=== PATIENT | male | born 1940 | race Caucasian/White ===

== ENCOUNTER 2018-08-15 11:20 | Inpatient (IN) ==
[2018-08-15] MEDS ORDERED: MECLIZINE HCL 25 MG TAB PO STA (11:34)
--- NOTE | 2018-08-15 12:00 | CT Scan Report ---
CT head/brain wo con CLINICAL HISTORY: vertigo COMPARISON STUDY: No previous studies for comparison. TECHNIQUE: Axial CT of the brain is performed from the vertex to the skull base. IV contrast was not administered for this examination. A dose lowering technique was utilized adhering to the principles of ALARA. CT DOSE: 537.48 mGy.cm FINDINGS: No intra or extra-axial mass lesions are visualized. There is no CT evidence of acute cortical infarc tion. There is no evidence of midline shift. There is no acute hemorrhage. No calvarial fractures ar e visualized. There are patchy white matter hypodensities likely on a small vessel basis. There is no evidence of pathologic ventricular dilatation. 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 IMPRESSION: No acute intracranial findings Electronically signed by: Geo Al M.D. 08/15/2018 11:58 AM
[2018-08-15 12:04] LABS: Partial Thromboplastin Ratio 1.1; Partial Thromboplastin Time 29.6 Seconds (21.0-31.0); Prothrombin Time 10.4 Seconds (9.0-12.0)
--- NOTE | 2018-08-15 12:08 | XRay Report ---
XR chest 1V portable CLINICAL HISTORY: weakness COMPARISON STUDY: No previous studies for comparison. FINDINGS: The cardiac and mediastinal contours are normal. There is no evidence of focal pulmonary co nsolidation. There is no evidence of failure. No pleural effusions are visualized.[ There is slight p rogression of chronic basilar interstitial thickening. IMPRESSION: No active disease in the chest. Electronically signed by: Geo Al M.D. 08/15/2018 12:07 PM
[2018-08-15 12:11] LABS: Albumin Level 3.4 gm/dl (3.4-5.0); BUN Creatinine Ratio 17.3 (10-20); Calcium 9.1 mg/dl (8.5-10.1); Creatinine Clr Calc Pharmacy 32.2 ml/min; Est GFR (African American) 37.5; Est GFR (Non-African American) 32.4; Magnesium 2.5 mg/dl (1.8-2.4); Potassium 3.9 mmol/L (3.5-5.1)
[2018-08-15 12:21] LABS: Hematocrit (blood only) 44.3 % (42-52); Hemoglobin 15.7 g/dL (14.0-18.0); Mean Corpuscular Hgb Conc 35.4 g/dL (32-36); Mean Corpuscular Volume 97.4 fL (80-100); Mean Platelet Volume 13.1 fL (7.4-10.4); Platelet Count 24 K/uL (130-400); RDW Coefficient of Variation 13.6 % (11.5-14.5); RDW Standard Deviation 48.7 fL (36.4-46.3); Red Blood Count 4.55 M/uL (4.7-6.1); White Blood Count 3.61 K/uL (4.8-10.8)
[2018-08-15 12:22] LABS: Albumin Globulin Ratio 0.7 (0.9-2); Basophils # (auto) 0.11 K/uL (0-0.2); Bilirubin,Total 1.9 mg/dl (0.2-1); Eosinophils # (auto) 0.01 K/uL (0-0.5); Eosinophils % (auto) 0.3 %; Globulin 4.7 gm/dl (2.5-4.0); Immature Granulocytes # (auto) 0.01 K/uL (0.00-0.02); Immature Granulocytes % (auto) 0.3 %; Lymphocytes # (auto) 0.69 K/uL (1.2-3.4); Lymphocytes % (auto) 19.1 %; Monocytes # (auto) 0.69 K/uL (0.11-0.59); Monocytes % (auto) 19.1 %; Neutrophils % (auto) 58.2 %; Platelet Estimate SIGNIFIC DECREASED (Normal); Total Protein 8.1 gm/dl (6.4-8.2); Troponin I 0.028 ng/ml (0-0.045)
[2018-08-15 13:03] LABS: Appearance Urine Cloudy (Clear); Bacteria Urine Automated Negative (Negative); Blood Urine 2+ (Negative); Color Urine Dark Yellow; Epithelial Cell Urine Auto >30 /lpf (0-5); Glucose Urine UA Negative (Negative); Ketones Urine Trace (Negative); Leukocyte Esterase Urine Negative (Negative); Nitrite Urine Negative (Negative); Protein Urine 2+ (Negative); Specific Gravity Urine 1.025 (1.000-1.030); Urobilinogen Urine Negative (Negative); pH Urine 5.5 (4.5-7.5)
[2018-08-15 13:15] LABS: Bilirubin Urine Negative (Negative); Ictotest Urine Negative (Negative)
[2018-08-15] MEDS ORDERED: DOXYCYCLINE HYCLATE 100 MG CAP PO STA (13:23)
[2018-08-15] MEDS ORDERED: cefTRIAXone SODIUM 2,000 MG in DEXTROSE 5% 50 ML IV STA (13:23)
[2018-08-15 14:32] LABS: Lyme Ab IgG w/WB Rflx Negative (Negative); Lyme Ab IgM w/WB Rflx Negative (Negative)
[2018-08-15] MEDS ORDERED: SODIUM CHLORIDE 0.9% 500 ML IV ONE (14:41)
--- NOTE | 2018-08-15 14:51 | History & Physical Report ---
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 -Noted to have WBC count of 3.61, RBC count 4.55 and platelets of 24. Hemoglobin stable at 15.7 -Peripheral smear highly suspicious for anaplasmosis -Given dose of Rocephin, doxycycline and ED -Continue doxycycline 100 mg twice daily for 10-14 days -lyme, anaplasmosis serology pending -PT/OT evaluation, conditioning -Gentle IV fluids (2) Thrombocytopenia: Platelet count significantly reduced at 24, was 224 last month -No evidence of active bleeding, closely monitor -Hold baby aspirin -SCDs (3) CKD (chronic kidney disease), stage III: Kidney function slightly worse than baseline with Cr of 1.9 (baseline 1.7) -In setting of poor PO intake, infection -Gentle IV fluids, hold hctz for now (4) HTN (hypertension): Normotensive -Holding triamterene-hctz (5) HLD (hyperlipidemia): Continue statin (6) Vertigo: In setting of infection, dehydration -Expect improvement with fluids and doxy -Meclizine PRN (7) Asthma: Controlled, no home inhalers DVT Ppx: SCDs in setting of thrombocytopenia Code status: FULL per discussion with patient PCP: Seb Dispo:Observation med tele. Plan to return home once medically stable. Patient seen in collaboration with Dr. Anderson. Please see addendum. History of Present Illness Chief Complaint: Lightheadedness, generalized weakness Primary Care Provider: George Grigsby MD This is a 77-year-old male with a PMH of HTN, HLD, CKD III, asthma, h/o DVT and other medical problems listed below who presents with lightheadedness and weakness x 1 week. Normally ambulates independently but felt progressively weaker and had to use his cane. Also noted lightheadedness and dizziness that has developed since last week. Patient had been working in his yard last week with [employer] and lives near [facility]. Has not felt well enough to work as yard in the last few days. Decreased p.o. intake as well. Found to be hemodynamically stable in the ED. Noted to have WBC count of 3.61, RBC count 4.55 and platelets of 24. Hemoglobin stable at 15.7. These are all decreased from baseline, specifically platelet count which was 224 last month. Denies any active bleeding or new bruises. Peripheral smear highly suspicious for anaplasmosis. Started on doxycycline and ceftriaxone in the ED. No fever, chills, congestion, sore throat, chest pain, palpitations, shortness of breath, nausea, vomiting, abdominal pain, dysuria, hematuria, diarrhea, constipation, melena or hematochezia. Allergies Allergy/AdvReac Type Severity Reaction Status Date / Time No Known Allergies Allergy Unknown Verified 08/15/18 12:46 Home Medications Home Medications Medication Instructions Recorded Confirmed Type aspirin 81 mg PO QAM 08/15/18 08/15/18 History atorvastatin 20 mg PO DAILY 08/15/18 08/15/18 History multivitamin 1 tab PO DAILY 08/15/18 08/15/18 History triamterene-hydrochlorothiazid 1 tab PO DAILY 08/15/18 08/15/18 History Past Med/Surg History Medical History Asthma (Chronic) CKD (chronic kidney disease), stage III (Chronic) HLD (hyperlipidemia) (Chronic) HTN (hypertension) (Chronic) H/O deep venous thrombosis (Resolved) Surgical History H/O lumbosacral spine surgery (Chronic) Social History Current Living Situation: Spouse Feels Safe at Home: Yes Smoking Status: Never smoker Hx Alcohol Use: Yes Alcohol type: wine Review of Systems Review of Systems: At least ten systems reviewed and negative except as noted in the HPI. Physical Exam Physical Exam: General Appearance: WD/WN, no apparent distress, resting comfortably Head: normocephalic, atraumatic Eyes: normal inspection, PERRL, EOMI ENT: hearing grossly normal, pharynx normal (moist mucous membranes) Neck: supple, no JVD, no adenopathy Respiratory/Chest: lungs clear to auscultation. No wheezes, rales or rhonci. No respiratory distress or accessory muscle use Cardiovascular: regular rate, rhythm, no murmur, normal peripheral pulses Abdomen/GI: normal bowel sounds, soft, non-tender to palpation Extremities/Musculoskelatal: normal inspection, no calf tenderness, normal capillary refill, no pedal edema Neurologic/Psych: alert, normal mood/affect, oriented x 3. CN II-XII grossly intact, AROM and 5/5 EDIN in all extremities Skin: normal color, warm/dry, some erythematous plaques on bilateral arms, has been present x 1 week Results & Data Vital Signs (Past 12 Hours) Vital Signs Temp Pulse Resp BP Pulse Ox 08/15/18 14:30 65 18 08/15/18 14:00 83 19 08/15/18 13:30 64 19 08/15/18 12:30 62 17 98/59 L 08/15/18 12:01 23 116/63 08/15/18 11:25 36.9 C 76 16 125/81 98 Laboratory Results Short CBC 08/15/18 Range/Units 11:40 WBC 3.61 L (4.8-10.8) K/uL Hgb 15.7 (14.0-18.0) g/dL Hct 44.3 (42-52) % Plt Count 24 L* (130-400) K/uL BMP 08/15/18 11:40 Sodium 134 L Potassium 3.9 Chloride 97 L Carbon Dioxide 30 BUN 33 H Creatinine 1.92 H Glucose 106 H Calcium 9.1 Cardiac Enzymes 08/15/18 Range/Units 11:40 Troponin I 0.028 (0-0.045) ng/ml Liver Function 08/15/18 Range/Units 11:40 Total Bilirubin 1.9 H (0.2-1) mg/dl AST 120 H (15-37) U/L ALT 75 (12-78) U/L Alkaline Phosphatase 215 H (45-117) U/L Albumin 3.4 (3.4-5.0) gm/dl Urine 08/15/18 Range/Units 12:40 Urine Color Dark Yellow Urine Appearance Cloudy H (Clear) Urine pH 5.5 (4.5-7.5) Ur Specific [place] 1.025 (1.000-1.030) Urine Protein 2+ H (Negative) Urine Glucose (UA) Negative (Negative) Supervising Physician Co-Signing Physician Notes Care coordinated with Maryann Mejia PA-C. Agree with above note. Patient seen and examined. Please refer to her notes for full details. Vital signs reviewed. Physical exam: General exam: Alert and oriented. Not in acute distress. CVS: S1 and S2 heard, regular rate and rhythm, no murmurs. RS: Clear to auscultation, no wheezing or crackles. ABD: Soft, bowel sounds present, nontender, no distention. SOCIAL SERVICE MANAGER: Nonfocal. EXT: No edema, no erythema. Labs: Reviewed. Assessment and plan: 77M who lives with his says he is not feeling well for about 3 weeks but more so since about a week. About a week ago his neighbours cut trees and he carried some of them to [email or web address]. Last five days loss of appetite. Denies fevers. No nausea or abdominal pain. Currently hemodynamically stable. Anaplasmosis leukopenia and thrombocytopenia peripheral smear suspicious for anaplasmosis follow lyme screen started on doxycyline if lyme scree negative can treat anaplasmosis for 10days HTN holding home diuretics will monitor Other diagnosis and plan of care as per Maryann Mejia PA-C. Homero molina MD.
--- NOTE | 2018-08-15 15:08 | Emergency Department Note ---
Entered by Brandy Silva acting as a scribe for Arun Winters DO History of Present Illness General Chief complaint: Neuro Symptoms/Deficit Stated complaint: OFF BALANCE Time Seen by Provider: 08/15/18 11:31 Source: patient History of Present Illness Provider complaint: dizziness Onset (ago): week(s) 2 Location: head Pain Consistency: + constant Maximum Pain Intensity: 0 Quality: + other (dizziness) Exacerbated By: + movement (getting up to walk) Associated symptoms: + denies other symptoms (denies ringing in ears); no fever/chills, no headaches and no weakness (in legs) The patient is a 77 year old male who presents to the Emergency Department with complaints of constant dizziness over the last 2 weeks. He denies having headaches, fevers, or ringing in his ears. He states that nothing alleviates his symptoms but reports that getting up to walk exacerbates his symptoms. He denies having weakness in his legs. Per family, the patient's speech seems normal currently. The patient denies a history of vertigo. He states that he takes 81 mg of aspirin daily. He reports that he does not smoke. The patient states that he did not see his PCP as he was unable to get an appointment. Home Medications Home Medications Medication Instructions Recorded Confirmed Type aspirin 81 mg PO QAM 08/15/18 08/15/18 History atorvastatin 20 mg PO DAILY 08/15/18 08/15/18 History multivitamin 1 tab PO DAILY 08/15/18 08/15/18 History triamterene-hydrochlorothiazid 1 tab PO DAILY 08/15/18 08/15/18 History Allergies Allergy/AdvReac Type Severity Reaction Status Date / Time No Known Allergies Allergy Unknown Verified 08/15/18 12:46 Past Med/Surg History Medical History Asthma (Chronic) CKD (chronic kidney disease), stage III (Chronic) HLD (hyperlipidemia) (Chronic) HTN (hypertension) (Chronic) H/O deep venous thrombosis (Resolved) Surgical History H/O lumbosacral spine surgery (Chronic) Social History Current Living Situation: Spouse Feels Safe at Home: Yes Smoking Status: Never smoker Hx Alcohol Use: Yes Alcohol type: wine Review of Systems See HPI for pertinent positives & negatives. and A total of 10 systems reviewed and were otherwise negative Physical Exam Vital Signs Vital Signs - 24 hr 08/15/18 11:25 08/15/18 12:01 08/15/18 12:30 Temperature 36.9 C Temperature Source Oral Sepsis Recent Fever Within 48 Hours No Sepsis New/Unexplained Change in Mental Status No Sepsis Action Taken by Nursing No Action Required Pulse Rate 76 62 Pulse Rate [Apical] Respiratory Rate 16 23 17 Blood Pressure 125/81 116/63 98/59 L Blood Pressure [Right Arm] Blood Pressure Mean 95 80 72 Blood Pressure Mean [Right Arm] Pulse Oximetry 98 Oxygen Delivery Method Room Air 08/15/18 13:30 08/15/18 14:00 08/15/18 14:30 Temperature Temperature Source Sepsis Recent Fever Within 48 Hours Sepsis New/Unexplained Change in Mental Status Sepsis Action Taken by Nursing Pulse Rate 64 83 65 Pulse Rate [Apical] 64 Respiratory Rate 19 17 18 Blood Pressure Blood Pressure [Right Arm] 110/51 L Blood Pressure Mean Blood Pressure Mean [Right Arm] 70 Pulse Oximetry 95 Oxygen Delivery Method Room Air GENERAL: Patient is awake, alert, and in no acute distress.Patient is resting comfortably and showing no signs of anxiety EYES: The conjunctivae are clear. The pupils are round and reactive. EARS, NOSE, MOUTH AND THROAT: The nose is without any evidence of any deformity. Mucous membranes are moist.Tongue is midline. TMS clear bilaterally. NECK: The neck is nontender and supple. RESPIRATORY: Normal respiratory effort is noted. There is no evidence of wheezing rhonchi or rales to auscultation. CARDIOVASCULAR: Regular rate and rhythm noted. There no murmurs rubs or gallops normal S1 normal S2 GASTROINTESTINAL: The abdomen is soft. Bowel sounds are present in all quadrants. Abdomen is nontender. MUSCULOSKELETAL/EXTREMITIES: There is no evidence of gross deformity. Full range of motion is noted in the hips and shoulders. No calf tenderness. SKIN: There is no obvious evidence of any rash. There are no petechiae, pallor or cyanosis noted. Trace pedal edema bilaterally. NEUROLOGIC: Patient is awake alert and oriented x3.Strength is symmetric. Patellar reflexes are 2+ bilaterally. No facial droop or nystagmus. Course 1133: The patient was evaluated in room C12B. A history and physical were performed. 1328: I updated the patient who verbalized agreement and understanding of the treatment plan. 1334: I discussed the patient's case with Maryann Schofield, admitting to Dr. Anderson, who will evaluate the patient for further management. Consultations Consultation #1: Maryann Schofield Time: 13:34 Administered Medications Sodium Chloride (Nss) 500 mls @ 999 mls/hr IV .Q31M ONE Stop: 08/15/18 15:11 Last Admin: 08/15/18 14:59 Dose: 999 mls/hr Documented by: [id number] Discontinued Medications Doxycycline Hyclate (Vibramycin) 200 mg PO NOW STA Stop: 08/15/18 13:24 Last Admin: 08/15/18 13:52 Dose: 200 mg Documented by: [id number] Ceftriaxone Sodium 2,000 mg/ (Dextrose) 70 mls @ 100 mls/hr IV NOW STA Stop: 08/15/18 14:04 Last Infusion: 08/15/18 14:37 Dose: 0 mls/hr Documented by: [id number] Admin: 08/15/18 14:00 Dose: 100 mls/hr Documented by: [id number] Meclizine HCl (Antivert) 25 mg PO NOW STA Stop: 08/15/18 11:35 Last Admin: 08/15/18 12:11 Dose: 25 mg Documented by: [id number] Medical Decision Making Differential Diagnosis Differential includes acute coronary syndrome, myocardial infarction, CVA, TIA, anemia, infection, pneumonia, UTI, pyelonephritis, poor nutrition, dehydration, electrolyte disturbance,hypoglycemia. Medical Records Attestation: I reviewed the patient's medical records. Home Medications Current Medication List: was personally reviewed by me Laboratory Data Attestation: I reviewed the patient's lab results. Result diagrams: 08/15/18 11:40 08/15/18 11:40 Lab Results 08/15/18 08/15/18 08/15/18 Range/Units 11:40 11:40 11:40 WBC 3.61 L (4.8-10.8) K/uL RBC 4.55 L (4.7-6.1) M/uL Hgb 15.7 (14.0-18.0) g/dL Hct 44.3 (42-52) % MCV 97.4 (80-100) fL MCH 34.5 H (25-34) pg MCHC 35.4 (32-36) g/dL RDW Std Deviation 48.7 H (36.4-46.3) fL RDW Coeff of Brian 13.6 (11.5-14.5) % Plt Count 24 L* (130-400) K/uL MPV 13.1 H (7.4-10.4) fL Immature Gran % (Auto) 0.3 % Neut % (Auto) 58.2 % Lymph % (Auto) 19.1 % [place] % (Auto) 19.1 % Eos % (Auto) 0.3 % Baso % (Auto) 3.0 % Immature Gran # (Auto) 0.01 (0.00-0.02) K/uL Neut # (Auto) 2.10 (1.4-6.5) K/uL Lymph # (Auto) 0.69 L (1.2-3.4) K/uL [place] # (Auto) 0.69 H (0.11-0.59) K/uL Eos # (Auto) 0.01 (0-0.5) K/uL Baso # (Auto) 0.11 (0-0.2) K/uL Blood Smear Review Platelet Estimate SIGNIFIC DECREASED (Normal) PT 10.4 (9.0-12.0) Seconds INR 1.0 (0.9-1.1) APTT 29.6 (21.0-31.0) Seconds PTT Ratio 1.1 Sodium 134 L (136-145) mmol/L Potassium 3.9 (3.5-5.1) mmol/L Chloride 97 L (98-107) mmol/L Carbon Dioxide 30 (21-32) mmol/L Anion Gap 7.0 (3-11) BUN 33 H (7-18) mg/dl Creatinine 1.92 H (0.6-1.4) mg/dl Est Cr Clr Drug Dosing 32.2 ml/min Est GFR ( Amer) 37.5 Est GFR (Non-Af Amer) 32.4 BUN/Creatinine Ratio 17.3 (10-20) Glucose 106 H (70-99) mg/dl Calcium 9.1 (8.5-10.1) mg/dl Magnesium 2.5 H (1.8-2.4) mg/dl Total Bilirubin 1.9 H (0.2-1) mg/dl AST 120 H (15-37) U/L ALT 75 (12-78) U/L Alkaline Phosphatase 215 H (45-117) U/L Troponin I 0.028 (0-0.045) ng/ml Total Protein 8.1 (6.4-8.2) gm/dl Albumin 3.4 (3.4-5.0) gm/dl Globulin 4.7 H (2.5-4.0) gm/dl Albumin/Globulin Ratio 0.7 L (0.9-2) TSH 3.050 (0.300-4.500) uIu/ml Urine Color Urine Appearance (Clear) Urine pH (4.5-7.5) Ur Specific [place] (1.000-1.030) Urine Protein (Negative) Urine Glucose (UA) (Negative) Urine Ketones (Negative) Urine Blood (Negative) Urine Nitrite (Negative) Urine Bilirubin (Negative) Urine Urobilinogen (Negative) Ur Leukocyte Esterase (Negative) Urine WBC (Auto) (0-5) /hpf Urine RBC (Auto) (0-4) /hpf U Hyaline Cast (Auto) (0-5) /lpf U Epithel Cells (Auto) (0-5) /lpf Urine Bacteria (Auto) (Negative) Granular Casts (0) /lpf Lyme Disease IgG Ab (Negative) Lyme Disease IgM Ab (Negative) 08/15/18 08/15/18 Range/Units 12:40 12:43 WBC (4.8-10.8) K/uL RBC (4.7-6.1) M/uL Hgb (14.0-18.0) g/dL Hct (42-52) % MCV (80-100) fL MCH (25-34) pg MCHC (32-36) g/dL RDW Std Deviation (36.4-46.3) fL RDW Coeff of Brian (11.5-14.5) % Plt Count (130-400) K/uL MPV (7.4-10.4) fL Immature Gran % (Auto) % Neut % (Auto) % Lymph % (Auto) % [place] % (Auto) % Eos % (Auto) % Baso % (Auto) % Immature Gran # (Auto) (0.00-0.02) K/uL Neut # (Auto) (1.4-6.5) K/uL Lymph # (Auto) (1.2-3.4) K/uL [place] # (Auto) (0.11-0.59) K/uL Eos # (Auto) (0-0.5) K/uL Baso # (Auto) (0-0.2) K/uL Blood Smear Review Platelet Estimate (Normal) PT (9.0-12.0) Seconds INR (0.9-1.1) APTT (21.0-31.0) Seconds PTT Ratio Sodium (136-145) mmol/L Potassium (3.5-5.1) mmol/L Chloride (98-107) mmol/L Carbon Dioxide (21-32) mmol/L Anion Gap (3-11) BUN (7-18) mg/dl Creatinine (0.6-1.4) mg/dl Est Cr Clr Drug Dosing ml/min Est GFR ( Amer) Est GFR (Non-Af Amer) BUN/Creatinine Ratio (10-20) Glucose (70-99) mg/dl Calcium (8.5-10.1) mg/dl Magnesium (1.8-2.4) mg/dl Total Bilirubin (0.2-1) mg/dl AST (15-37) U/L ALT (12-78) U/L Alkaline Phosphatase (45-117) U/L Troponin I (0-0.045) ng/ml Total Protein (6.4-8.2) gm/dl Albumin (3.4-5.0) gm/dl Globulin (2.5-4.0) gm/dl Albumin/Globulin Ratio (0.9-2) TSH (0.300-4.500) uIu/ml Urine Color Dark Yellow Urine Appearance Cloudy H (Clear) Urine pH 5.5 (4.5-7.5) Ur Specific [place] 1.025 (1.000-1.030) Urine Protein 2+ H (Negative) Urine Glucose (UA) Negative (Negative) Urine Ketones Trace H (Negative) Urine Blood 2+ H (Negative) Urine Nitrite Negative (Negative) Urine Bilirubin Negative (Negative) Urine Urobilinogen Negative (Negative) Ur Leukocyte Esterase Negative (Negative) Urine WBC (Auto) 1-5 (0-5) /hpf Urine RBC (Auto) 5-10 H (0-4) /hpf U Hyaline Cast (Auto) 1-5 (0-5) /lpf U Epithel Cells (Auto) >30 H (0-5) /lpf Urine Bacteria (Auto) Negative (Negative) Granular Casts 5-10 H (0) /lpf Lyme Disease IgG Ab Negative (Negative) Lyme Disease IgM Ab Negative (Negative) Imaging Data Radiologist's Impression: Radiology results as stated below per my review and the radiologist's interpretation: CT head/brain wo con CLINICAL HISTORY: vertigo COMPARISON STUDY: No previous studies for comparison. TECHNIQUE: Axial CT of the brain is performed from the vertex to the skull base. IV contrast was not administered for this examination. A dose lowering technique was utilized adhering to the principles of ALARA. CT DOSE: 537.48 mGy.cm FINDINGS: No intra or extra-axial mass lesions are visualized. There is no CT evidence of acute cortical infarction. There is no evidence of midline shift. There is no acute hemorrhage. No calvarial fractures are visualized. There are patchy white matter hypodensities likely on a small vessel basis. There is no evidence of pathologic ventricular dilatation. 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 IMPRESSION: No acute intracranial findings Electronically signed by: Geo Al M.D. 08/15/2018 11:58 AM XR chest 1V portable CLINICAL HISTORY: weakness COMPARISON STUDY: No previous studies for comparison. FINDINGS: The cardiac and mediastinal contours are normal. There is no evidence of focal pulmonary consolidation. There is no evidence of failure. No pleural effusions are visualized.[ There is slight progression of chronic basilar interstitial thickening. IMPRESSION: No active disease in the chest. Electronically signed by: Geo Al M.D. 08/15/2018 12:07 PM ECG Data Attestation: I personally reviewed and interpreted this ECG as follows: Indication: other (dizziness) Rate (beats per minute): 64 Rhythm: normal sinus Findings: + RBBB and + ST depression (inferior); no PVC Comparison ECG Date: from (09/01/11) Change: no significant change Blood Pressure Blood Pressure Findings: Normal blood pressure MDM Narrative The patient is a 77-year-old male who presented department for vertigo and generalized weakness. The patient describes an episode of vertigo but also generalized weakness with difficulty ambulating. The patient was found to have a low white blood cell count as well as thrombocytopenia. His differential appeared to be consistent with possible anaplasmosis. The patient was treated with IV antibiotics in the emergency department. He was also given oral doxycycline. I discussed the patient's laboratory and radiographic studies with him. Because of his findings I also discussed his case with the on-call [facility] hospitalist group. They have agreed to evaluate the patient in the emergency department for further management and disposition. Impression & Plan Vertigo, Thrombocytopenia, GILLIAN (acute kidney injury) Discharge Plan Visit Data Chief Complaint: Neuro Symptoms/Deficit Stated Complaint: OFF BALANCE ED Provider: Arun Winters Discharge Problem: Vertigo, Thrombocytopenia, GILLIAN (acute kidney injury) Patient Disposition: Being Evaluated by Hospitalist Forms Stand Alone Forms: My [facility] Prescriptions Prescriptions: No Action multivitamin Tablet 1 tab PO DAILY RF: 0 atorvastatin 20 mg tablet 20 mg PO DAILY RF: 0 aspirin 81 mg Tablet,Delayed Release (Dr/Ec) 81 mg PO QAM RF: 0 triamterene-hydrochlorothiazid 37.5-25 mg tablet 1 tab PO DAILY RF: 0 Referrals Referrals: George Grigsby MD [Primary Care Provider] - The scribe's documentation has been prepared under my direction and personally reviewed by me in its entirety. I confirm that the note above accurately reflects all work, treatment, procedures, and medical decision making performed by me.
[2018-08-15] MEDS ORDERED: POLYETHYLENE (MIRALAX) 17 GM PACK PO PRN (16:11)
[2018-08-15] MEDS ORDERED: ACETAMINOPHEN 325 MG TAB PO PRN (16:11)
[2018-08-15] MEDS ORDERED: MECLIZINE 12.5 MG TAB PO PRN (16:11)
[2018-08-15] MEDS ORDERED: SODIUM CHLORIDE 0.9% 1000ML 1,000 ML IV SCH (16:15)
[2018-08-15] MEDS: DOXYCYCLINE HYCLATE 100 MG CAP PO SCH (20:10)
[2018-08-16 09:29] LABS: Hematocrit (blood only) 41.3 % (42-52); Hemoglobin 14.7 g/dL (14.0-18.0); Mean Corpuscular Hgb Conc 35.6 g/dL (32-36); Mean Corpuscular Volume 97.6 fL (80-100); RDW Coefficient of Variation 13.7 % (11.5-14.5); RDW Standard Deviation 49.2 fL (36.4-46.3); Red Blood Count 4.23 M/uL (4.7-6.1)
[2018-08-16 09:57] LABS: BUN Creatinine Ratio 18.8 (10-20); Calcium 8.6 mg/dl (8.5-10.1); Creatinine Clr Calc Pharmacy 39.1 ml/min; Est GFR (African American) 47.5; Potassium 3.2 mmol/L (3.5-5.1)
[2018-08-16] MEDS: ATORVASTATIN 20 MG TAB PO SCH (09:58)
[2018-08-16] MEDS: MULTIVITAMIN TAB PO SCH (09:58)
[2018-08-16] MEDS: DOXYCYCLINE HYCLATE 100 MG CAP PO SCH ×2 (09:58→20:30)
[2018-08-16 10:14] LABS: ALC (manual) 2.98 K/uL (1.2-3.4); Giant Platelets 1+; Lymphocytes % (manual) 37.8 %; Mean Platelet Volume 14.1 fL (7.4-10.4); Monocytes # (manual) 0.51 K/uL (0.11-0.59); Monocytes % (manual) 9.6 %; Neutrophils % (manual) 34.2 %; Reactive Lymphocytes # (manual) 0.98 K/uL
--- NOTE | 2018-08-16 11:56 | Hospitalist Progress Note ---
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 -CBC slightly improved with WBCs up to 5.3 (from 3.6), platelets up to 28 from 24 -Hemoglobin stable at 14.7, slightly decreased from yesterday due to dilution from fluids -Peripheral smear highly suspicious for anaplasmosis -Continue doxycycline 100 mg twice daily for 10-14 days -Lyme, anaplasmosis serology pending -ID routine consult -PT/OT evaluation -Gentle IV fluids (2) Thrombocytopenia: Platelet count significantly reduced at 28, was 224 last month -No evidence of active bleeding, closely monitor -Transfuse plt if <10 -Hold baby aspirin -SCDs (3) CKD (chronic kidney disease), stage III: Kidney function back to baseline after fluids -Encouraged continued PO intake -Gentle IV fluids, hold hctz for now (4) Hypokalemia: Replacing (5) HTN (hypertension): Normotensive -Holding triamterene-hctz (6) HLD (hyperlipidemia): Continue statin (7) Vertigo: In setting of infection, dehydration -Expect improvement with fluids and doxy -Meclizine PRN (8) Asthma: Controlled, no home inhalers DVT Ppx: SCDs in setting of thrombocytopenia Code status: FULL per discussion with patient PCP: Seb Dispo:Observation med tele. Plan to return home once medically stable. Patient seen in collaboration with Dr. Light. Please see addendum. Attending Addendum: care coordinated with BRANDT Mejia please refer to her notes for full details, I agree with her notes patient seen and examined, records reviewed by myself as well on exam, patient seen sitting up in bed, comfortable, in good spirits States he feels better today overall appear to admission Denies chest pain, shortness of breath, dizziness, palpitations No bleeding no other symptoms VS noted and reviewed oriented , not in distress, speaks in sentences with no effort nor accessory muscle use normal rate, regular rhythm, no murmurs clear breath sounds bilaterally non distended, soft, nontender no bipedal edema, erythema, warmth no neuro deficits WBC 5.3 Hg 14.7 Crea 28 ASSESSMENT AND PLAN Possible anaplasmosis Serologic testing pending On empiric doxycycline CBC slightly improved compared to yesterday Improving ID consulted for further recommendations Neutropenia, thrombocytopenia Likely secondary to anaplasmosis WBC and platelet counts slightly improving No bleeding Maintain platelets more than 10,000 Anticipate increase in CBC with treatment of anaplasmosis other diagnoses and plan of care as per BRANDT Mejia's notes Andrei Light MD Subjective Patient seen and examined. Feeling better today. Tolerating p.o. intake much better than before. Denies any fever, chills, lightheadedness, chest pain, shortness of breath, nausea, vomiting, abdominal pain, dysuria, diarrhea or constipation. Still feels generally weak. Will have PT/OT evaluation due to deconditioning over the past 10 days. Patient eager to be discharged home but we discussed bleeding risk due to significantly decreased platelets. Patient understands. Review of Systems Review of Systems: At least ten systems reviewed and negative except as noted in the HPI. Physical Exam Physical Exam: General Appearance: WD/WN, no apparent distress, resting comfortably doing sudoku puzzle Head: normocephalic, atraumatic Eyes: normal inspection, PERRL, EOMI ENT: hearing grossly normal, pharynx normal (moist mucous membrane) Neck: supple, no JVD, no adenopathy Respiratory/Chest: lungs clear to auscultation. No wheezes, rales or rhonci. No respiratory distress or accessory muscle use Cardiovascular: regular rate, rhythm, no murmur, normal peripheral pulses Abdomen/GI: normal bowel sounds, soft, non-tender to palpation Extremities/Musculoskelatal: normal inspection, no calf tenderness, normal capillary refill, no pedal edema Neurologic/Psych: alert, normal mood/affect, oriented x 3, Strength and sensation intact. Skin: normal color, warm/dry Results & Data Vital Signs (Past 12 Hours) Vital Signs Temp Pulse Pulse Resp BP BP Pulse Ox 08/16/18 11:45 36.5 C 53 L 22 132/73 99 08/16/18 07:06 36.5 C 53 L 18 101/62 97 08/16/18 04:12 36.9 C 88 18 119/60 97 08/16/18 01:14 59 L Laboratory Results Short CBC 08/15/18 08/16/18 Range/Units 11:40 09:08 WBC 3.61 L 5.30 (4.8-10.8) K/uL Hgb 15.7 14.7 (14.0-18.0) g/dL Hct 44.3 41.3 L (42-52) % Plt Count 24 L* 28 L* (130-400) K/uL BMP 08/15/18 08/16/18 11:40 09:08 Sodium 134 L 137 Potassium 3.9 3.2 L D Chloride 97 L 100 Carbon Dioxide 30 29 BUN 33 H 30 H Creatinine 1.92 H 1.58 H D Glucose 106 H 96 Calcium 9.1 8.6 Cardiac Enzymes 08/15/18 Range/Units 11:40 Troponin I 0.028 (0-0.045) ng/ml Liver Function 08/15/18 Range/Units 11:40 Total Bilirubin 1.9 H (0.2-1) mg/dl AST 120 H (15-37) U/L ALT 75 (12-78) U/L Alkaline Phosphatase 215 H (45-117) U/L Albumin 3.4 (3.4-5.0) gm/dl Urine 08/15/18 Range/Units 12:40 Urine Color Dark Yellow Urine Appearance Cloudy H (Clear) Urine pH 5.5 (4.5-7.5) Ur Specific [place] 1.025 (1.000-1.030) Urine Protein 2+ H (Negative) Urine Glucose (UA) Negative (Negative)
[2018-08-16] MEDS ORDERED: POTASSIUM CHLORIDE 20 MEQ TABCR PO ONE (12:15)
[2018-08-16] MEDS ORDERED: POTASSIUM CHLORIDE 40 MEQ in SODIUM CHLORIDE 0.9% 1000ML 1,000 ML IV SCH (12:30)
--- NOTE | 2018-08-16 14:12 | Infectious Disease Consult ---
Date of Consultation August 16, 2018 Assessment & Plan (1) Anaplasmosis: 77-year-old male with neutropenia, thrombocytopenia, mild elevation of the liver enzymes, with intra-cytoplasmic inclusions consistent with a diagnosis of anaplasmosis. It is somewhat unusual not to see associated fever and body aches. Patient should continue on doxycycline 100 mg twice daily, likely in the range of 7 to 10 days of therapy. Await follow-up platelet count and LFTs. Appropriate studies for DNA and antibodies ordered. Will follow. History of Present Illness Reason for Consultation: Anaplasmosis, thrombocytopenia Attending Physician: Andrei Light MD History of Present Illness 77-year-old male with history of hypertension, hyperlipidemia, and stage III chronic kidney disease, who was well until 2 weeks or so ago, when a day or so after working outdoors he began to notice some dizziness and weakness. Symptoms progressively worsened over the next week or so when patient eventually came to the hospital for further management. He was found to be significantly thrombocytopenic, with mild neutropenia and mild elevation of liver enzymes. Peripheral smear highly suggestive of Anaplasma with intra-neutrophilic inclusions. He has been started on doxycycline. Of note is patient has not had any cough, or GI symptoms. No rash. Allergies Allergy/AdvReac Type Severity Reaction Status Date / Time No Known Allergies Allergy Unknown Verified 08/15/18 12:46 Home Medications Home Medications Medication Instructions Recorded Confirmed Type aspirin 81 mg PO QAM 08/15/18 08/15/18 History atorvastatin 20 mg PO DAILY 08/15/18 08/15/18 History multivitamin 1 tab PO DAILY 08/15/18 08/15/18 History triamterene-hydrochlorothiazid 1 tab PO DAILY 08/15/18 08/15/18 History Patient History Medical History Asthma (Chronic) CKD (chronic kidney disease), stage III (Chronic) HLD (hyperlipidemia) (Chronic) HTN (hypertension) (Chronic) H/O deep venous thrombosis (Resolved) Surgical History H/O lumbosacral spine surgery (Chronic) Family History Father Coronary heart disease Mother Heart disease Social History Preferred Language: Greenlandic Communication Ability: Effective Communication Ability Comment: appears to be reading lips when being spoken to Language Instructor Required: No Beliefs That Will Affect Care: Congregation Congregation Beliefs: Scientologist Current Living Situation: Spouse Other Information That Helps Us Care for You: No Feels Safe at Home: Yes Safety Concerns: Feels Safe At This Time Smoking Status: Never smoker Do You Dip or Chew Tobacco: No Hx Alcohol Use: Yes Alcohol type: wine Hx Substance Use: No Review of Systems Review of Systems: All systems reviewed & are unremarkable except as noted in HPI & below Physical Exam Constitutional: WD/WN, vitals as above comfortable; no acute distress Eyes: PERRL, conjunctivae normal, anicteric sclerae ENMT: external ear and nose normal, oropharynx normal Neck: trachea midline, no thyromegaly neck nontender Respiratory: normal respiratory effort, lungs clear to auscultation normal percussion; does not use accessory muscles Cardiovascular: Rate/Rhythm: regular rate and regular rhythm Heart Sounds: normal S1 and normal S2; no gallop, no murmur and no cardiac rub Vessels: normal peripheral pulses; no JVD Gastrointestinal (Abdomen): normal bowel sounds, soft, nontender, no hepatosplenomegaly Musculoskeletal: no cyanosis or clubbing, extremities motor strength 5/5 Spine: thoracic spine normal to inspection and lumbar spine normal to inspection; no cervical spinal tenderness Skin: no rashes, warm and dry normal turgor; no lesions Neurologic: patellar DTR's 2+ bilat, sensation intact no focal motor deficits Psychiatric: A+Ox3, euthymic affect Orientation: cooperative Lymphatic: no cervical or axillary lymphadenopathy no inguinal lymphadenopathy Results & Data Vital Signs (Past 12 Hours) Vital Signs Temp Pulse Pulse Resp BP BP Pulse Ox 08/16/18 11:45 36.5 C 53 L 22 132/73 99 08/16/18 07:06 36.5 C 53 L 18 101/62 97 08/16/18 07:00 51 L 08/16/18 04:12 36.9 C 88 18 119/60 97 Laboratory Results Short CBC 08/16/18 Range/Units 09:08 WBC 5.30 (4.8-10.8) K/uL Hgb 14.7 (14.0-18.0) g/dL Hct 41.3 L (42-52) % Plt Count 28 L* (130-400) K/uL BMP 08/16/18 09:08 Sodium 137 Potassium 3.2 L D Chloride 100 Carbon Dioxide 29 BUN 30 H Creatinine 1.58 H D Glucose 96 Calcium 8.6 Diagnostic Findings cc: ~ XR chest 1V portable CLINICAL HISTORY: weakness COMPARISON STUDY: No previous studies for comparison. FINDINGS: The cardiac and mediastinal contours are normal. There is no evidence of focal pulmonary consolidation. There is no evidence of failure. No pleural effusions are visualized.[ There is slight progression of chronic basilar interstitial thickening. IMPRESSION: No active disease in the chest. Electronically signed by: Geo Al M.D. 08/15/2018 12:07 PM Dictated: 08/15/18 1206 Transcribed: 08/15/18 1206
[2018-08-17 07:21] LABS: Hematocrit (blood only) 37.3 % (42-52); Hemoglobin 13.2 g/dL (14.0-18.0); Mean Corpuscular Hgb Conc 35.4 g/dL (32-36); Mean Corpuscular Volume 98.4 fL (80-100); Mean Platelet Volume 12.9 fL (7.4-10.4); Platelet Count 42 K/uL (130-400); RDW Coefficient of Variation 13.9 % (11.5-14.5); RDW Standard Deviation 50.1 fL (36.4-46.3); Red Blood Count 3.79 M/uL (4.7-6.1); White Blood Count 7.89 K/uL (4.8-10.8)
[2018-08-17 07:31] LABS: BUN Creatinine Ratio 20.6 (10-20); Calcium 7.8 mg/dl (8.5-10.1); Creatinine Clr Calc Pharmacy 46.5 ml/min; Est GFR (African American) 58.5; Est GFR (Non-African American) 50.5
[2018-08-17] MEDS: DOXYCYCLINE HYCLATE 100 MG CAP PO SCH ×2 (08:35→20:49)
[2018-08-17] MEDS: ATORVASTATIN 20 MG TAB PO SCH (08:35)
[2018-08-17] MEDS: MULTIVITAMIN TAB PO SCH (08:35)
[2018-08-17 08:59] LABS: Platelet Count 28 K/uL (130-400)
[2018-08-17 12:32] LABS: Albumin Level 2.7 gm/dl (3.4-5.0); Bilirubin Direct 0.3 mg/dl (0-0.2); Bilirubin,Total 0.8 mg/dl (0.2-1); Total Protein 6.9 gm/dl (6.4-8.2)
--- NOTE | 2018-08-17 16:30 | Hospitalist Progress Note ---
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 White count improving, platelets and also improving AST ALT slightly elevated today We will monitor Anastomosis studies pending Empiric doxycycline ID consulted, recommendations (2) Thrombocytopenia: Platelet count significantly reduced at 28, was 224 last month Platelet trending up -No evidence of active bleeding, closely monitor -Transfuse plt if <10 -Hold baby aspirin -SCDs (3) CKD (chronic kidney disease), stage III: Kidney function back to baseline after fluids -Encouraged continued PO intake -Gentle IV fluids given, hold hctz for now (4) Hypokalemia: Replacing (5) HTN (hypertension): Normotensive -Holding triamterene-hctz (6) HLD (hyperlipidemia): Continue statin (7) Vertigo: In setting of infection, dehydration Resolved -Meclizine PRN (8) Asthma: Controlled, no home inhalers DVT Ppx: SCDs in setting of thrombocytopenia Code status: FULL per discussion with patient PCP: Seb Dispo: Anticipate discharge to home medically stable Subjective Follow-up for possible anaplasmosis Seen resting in bed, comfortable States he feels better overall No headache, dizziness, chills, chest pain, shortness of breath Denies other symptoms Review of Systems Review of Systems: All systems reviewed & are unremarkable except as noted in HPI & below Physical Exam Physical Exam: General- oriented x 3, not in distress, speaks in sentences with no effort or accessory muscle use Eyes- anicteric Neck- no JVD Lungs- clear breath sounds bilaterally, no rales/wheezes Heart- normal rate, regular rhythm; no murmurs Abdomen- normal bowel sounds, nondistended, soft, nontender Extremities- no pretibial edema, no calf tenderness Neuro- alert, oriented x 3; no gross focal neurologic deficits Skin- warm & dry Results & Data Vital Signs (Past 12 Hours) Vital Signs Temp Pulse Resp BP BP Pulse Ox 08/17/18 15:10 36.6 C 59 L 20 150/88 H 100 08/17/18 11:43 36.5 C 52 L 18 151/84 H 99 08/17/18 06:51 36.4 C L 98 H 18 125/64 92 08/17/18 04:44 36.5 C 52 L 18 117/67 93 Laboratory Results Laboratory Results - last 24 hr 08/16/18 08/17/18 08/17/18 09:08 06:40 06:40 WBC 7.89 RBC 3.79 L Hgb 13.2 L Hct 37.3 L MCV 98.4 MCH 34.8 H MCHC 35.4 RDW Std Deviation 50.1 H RDW Coeff of Brian 13.9 Plt Count 28 L* 42 L MPV 12.9 H Sodium 137 Potassium 4.0 D Chloride 107 Carbon Dioxide 27 Anion Gap 3.0 BUN 27 H Creatinine 1.33 Est Cr Clr Drug Dosing 46.5 Est GFR ( Amer) 58.5 Est GFR (Non-Af Amer) 50.5 BUN/Creatinine Ratio 20.6 H Glucose 98 Calcium 7.8 L Total Bilirubin Direct Bilirubin AST ALT Alkaline Phosphatase Total Protein Albumin Specimen Hemolysis 08/17/18 11:51 WBC RBC Hgb Hct MCV MCH MCHC RDW Std Deviation RDW Coeff of Brian Plt Count MPV Sodium Potassium Chloride Carbon Dioxide Anion Gap BUN Creatinine Est Cr Clr Drug Dosing Est GFR ( Amer) Est GFR (Non-Af Amer) BUN/Creatinine Ratio Glucose Calcium Total Bilirubin 0.8 Direct Bilirubin 0.3 H AST 163 H ALT 121 H Alkaline Phosphatase 250 H Total Protein 6.9 Albumin 2.7 L Specimen Hemolysis
[2018-08-18 07:04] LABS: Hematocrit (blood only) 41.5 % (42-52); Hemoglobin 14.2 g/dL (14.0-18.0); Mean Corpuscular Hgb Conc 34.2 g/dL (32-36); RDW Coefficient of Variation 14.2 % (11.5-14.5); RDW Standard Deviation 51.2 fL (36.4-46.3); Red Blood Count 4.19 M/uL (4.7-6.1); White Blood Count 9.93 K/uL (4.8-10.8)
[2018-08-18 07:29] LABS: Alanine Aminotransferase 146 U/L (12-78); Albumin Level 2.8 gm/dl (3.4-5.0); Alkaline Phosphatase 267 U/L (45-117); Aspartate Aminotransferase 170 U/L (15-37); BUN Creatinine Ratio 16.5 (10-20); Blood Urea Nitrogen 21 mg/dl (7-18); Calcium 8.1 mg/dl (8.5-10.1); Carbon Dioxide 28 mmol/L (21-32); Chloride 106 mmol/L (98-107); Creatinine Clr Calc Pharmacy 49.1 ml/min; Est GFR (African American) 62.5; Est GFR (Non-African American) 53.9; Glucose 88 mg/dl (70-99); Potassium 3.8 mmol/L (3.5-5.1); Sodium 137 mmol/L (136-145); Total Protein 7.2 gm/dl (6.4-8.2)
[2018-08-18 07:34] LABS: Mean Platelet Volume 12.6 fL (7.4-10.4); Platelet Count 81 K/uL (130-400)
[2018-08-18 07:35] LABS: Platelet Estimate Decreased (Normal)
[2018-08-18] MEDS: MULTIVITAMIN TAB PO SCH (07:58)
[2018-08-18] MEDS: ATORVASTATIN 20 MG TAB PO SCH (07:58)
[2018-08-18] MEDS: DOXYCYCLINE HYCLATE 100 MG CAP PO SCH (07:58)
--- NOTE | 2018-08-18 14:34 | Ultrasound Report ---
US liver HISTORY: 77 years-old Male elevated LFTs acutely elevated LFTs COMPARISON: Chest radiograph 08/15/2018 TECHNIQUE: Multiple real-time sonographic images of the abdominal right upper quadrant were obtained assessing grayscale appearance and color flow FINDINGS: The imaged pancreas is unremarkable. There is a 3 x 8 x 6 mm echogenic nonshadowing lesion of the rig ht hepatic lobe which is nonspecific. Liver is otherwise unremarkable. No evidence of cirrhosis or in trahepatic biliary ductal dilation. Gallbladder is unremarkable without shadowing cholelithiasis, wal l thickening or pericholecystic fluid. Sonographic Haque sign was not reported. Common bile duct is normal, 5 mm. Imaged right kidney is unremarkable without hydronephrosis. IMPRESSION: 1. No cholelithiasis or sonographic evidence of acute cholecystitis. 2. No biliary ductal dilation. 3. 8 mm indeterminate echogenic lesion of the right hepatic lobe, possibly reflecting a hemangioma. The above report was generated using voice recognition software. It may contain grammatical, syntax o r spelling errors. Electronically signed by: Oscar Pérez M.D. 08/18/2018 2:32 PM
--- NOTE | 2018-08-18 15:17 | Hospitalist Progress Note ---
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 White count improving, platelets also improving AST ALT slightly elevated Liver US: 1. No cholelithiasis or sonographic evidence of acute cholecystitis. 2. No biliary ductal dilation. 3. 8 mm indeterminate echogenic lesion of the right hepatic lobe, possibly reflecting a hemangioma. Anaplasmosis serology: pending Ehrlichiosis: pending Infectious disease consulted-Dr. Dunlap Reports to continue doxycycline for 10 days total Discharge plan: Doxycycline 100 mg p.o. twice daily x7 days Repeat CBC and follow-up with PCP in 3 to 5 days (2) Thrombocytopenia: Platelet count significantly reduced at 28, was 224 last month Platelet trending up -No evidence of active bleeding -Levels improved from 20,000 now 80,000 Hold aspirin for now CBC as an outpatient follow-up with PCP (3) CKD (chronic kidney disease), stage III: Kidney function back to baseline after fluids (4) Hypokalemia: Resolved (5) HTN (hypertension): Normotensive Continue usual blood pressure medicines (6) HLD (hyperlipidemia): Continue statin (7) Vertigo: In setting of infection, dehydration Resolved -Meclizine PRN (8) Asthma: Controlled, no home inhalers DVT Ppx: SCDs in setting of thrombocytopenia Code status: FULL per discussion with patient PCP: Seb Dispo: Discharge to home today Follow-up with primary care physician in 3 to 5 days Subjective ff up for anaplasmosis seen resting in bed, comfortable states he feels fine overall no headache, fever, weakness, chills, bleeding Ambulating with no problems States he is back to his baseline, states He is ready and would like to be discharged today Review of Systems Review of Systems: All systems reviewed & are unremarkable except as noted in HPI & below Physical Exam Physical Exam: General- oriented x 3, not in distress, speaks in sentences with no effort or accessory muscle use Eyes- anicteric Neck- no JVD Lungs- clear BS BL, no rales, no wheezing Heart- normal rate, regular rhythm; no murmurs Abdomen- normal bowel sounds, nondistended, soft, nontender Extremities- no pretibial edema, no calf tenderness Neuro- alert, oriented x 3; no gross focal neurologic deficits Skin- warm & dry Results & Data Vital Signs (Past 12 Hours) Vital Signs Temp Pulse Pulse Resp BP BP Pulse Ox 08/18/18 14:50 36.4 C L 56 L 56 L 20 130/79 134/74 98 08/18/18 11:58 36.4 C L 56 L 20 130/79 98 08/18/18 07:16 36.8 C 54 L 20 111/55 L 99 08/18/18 04:00 36.6 C 64 18 134/74 94 Laboratory Results Laboratory Results - last 24 hr 08/18/18 08/18/18 06:15 06:15 WBC 9.93 RBC 4.19 L Hgb 14.2 Hct 41.5 L MCV 99.0 MCH 33.9 MCHC 34.2 RDW Std Deviation 51.2 H RDW Coeff of Brian 14.2 Plt Count 81 L D MPV 12.6 H Platelet Estimate Decreased Sodium 137 Potassium 3.8 Chloride 106 Carbon Dioxide 28 Anion Gap 3.0 BUN 21 H Creatinine 1.26 Est Cr Clr Drug Dosing 49.1 Est GFR ( Amer) 62.5 Est GFR (Non-Af Amer) 53.9 BUN/Creatinine Ratio 16.5 Glucose 88 Calcium 8.1 L Total Bilirubin 1.0 Direct Bilirubin TNP AST 170 H ALT 146 H Alkaline Phosphatase 267 H Total Protein 7.2 Albumin 2.8 L Specimen Hemolysis
--- NOTE | 2018-08-18 15:18 | Discharge Summary ---
Date of Service August 18, 2018 Admission HPI Per Admitting Provider This is a 77-year-old male with a PMH of HTN, HLD, CKD III, asthma, h/o DVT and other medical problems listed below who presents with lightheadedness and weakness x 1 week. Normally ambulates independently but felt progressively weaker and had to use his cane. Also noted lightheadedness and dizziness that has developed since last week. Patient had been working in his yard last week with [employer] and lives near the [facility]. Has not felt well enough to work as yard in the last few days. Decreased p.o. intake as well. Found to be hemodynamically stable in the ED. Noted to have WBC count of 3.61, RBC count 4.55 and platelets of 24. Hemoglobin stable at 15.7. These are all decreased from baseline, specifically platelet count which was 224 last month. Denies any active bleeding or new bruises. Peripheral smear highly suspicious for anaplasmosis. Started on doxycycline and ceftriaxone in the ED. No fever, chills, congestion, sore throat, chest pain, palpitations, shortness of breath, nausea, vomiting, abdominal pain, dysuria, hematuria, diarrhea, constipation, melena or hematochezia. Admission Exam Per Admitting Provider General Appearance: WD/WN, no apparent distress, resting comfortably Head: normocephalic, atraumatic Eyes: normal inspection, PERRL, EOMI ENT: hearing grossly normal, pharynx normal (moist mucous membranes) Neck: supple, no JVD, no adenopathy Respiratory/Chest: lungs clear to auscultation. No wheezes, rales or rhonci. No respiratory distress or accessory muscle use Cardiovascular: regular rate, rhythm, no murmur, normal peripheral pulses Abdomen/GI: normal bowel sounds, soft, non-tender to palpation Extremities/Musculoskelatal: normal inspection, no calf tenderness, normal capillary refill, no pedal edema Neurologic/Psych: alert, normal mood/affect, oriented x 3. CN II-XII grossly intact, AROM and 5/5 EDIN in all extremities Skin: normal color, warm/dry, some erythematous plaques on bilateral arms, has been present x 1 week Principal Diagnosis ANAPLASMOSIS Discharge Exam General- oriented x 3, not in distress, speaks in sentences with no effort or accessory muscle use Eyes- anicteric Neck- no JVD Lungs- clear breath sounds bilaterally, no rales/wheezes Heart- normal rate, regular rhythm; no murmurs Abdomen- normal bowel sounds, nondistended, soft, nontender Extremities- no pretibial edema, no calf tenderness Neuro- alert, oriented x 3; no gross focal neurologic deficits Skin- warm & dry Discharge Data Allergies Allergy/AdvReac Type Severity Reaction Status Date / Time No Known Allergies Allergy Unknown Verified 08/15/18 12:46 Consultations 08/15/18 13:35 ED Decision to Admit Stat 08/16/18 11:58 Consult Infectious Diseases Routine Ordered Studies 08/15/18 11:34 CT head/brain wo con Stat No intra or extra-axial mass lesions are visualized. There is no CT evidence of acute cortical infarction. There is no evidence of midline shift. There is no acute hemorrhage. No calvarial fractures are visualized. There are patchy white matter hypodensities likely on a small vessel basis. There is no evidence of pathologic ventricular dilatation. There is opacification the sphenoid sinus which is felt to be chronic as there is evidence for bony hypertrophy of the sphenoid sinus renner. IMPRESSION: No acute intracranial findings 08/18/18 07:49 US liver Routine FINDINGS: The imaged pancreas is unremarkable. There is a 3 x 8 x 6 mm echogenic nonshad owing lesion of the right hepatic lobe which is nonspecific. Liver is otherwise unremarkable. No evidence of cirrhosis or intrahepatic biliary ductal dilation. Gallbladder is unremarkable without shadowing cholelithiasis, wall thickening or pericholecystic fluid. Sonographic Haque sign was not reported. Common bile duct is normal, 5 mm. Imaged right kidney is unremarkable without hydronephrosis. IMPRESSION: 1. No cholelithiasis or sonographic evidence of acute cholecystitis. 2. No biliary ductal dilation. 3. 8 mm indeterminate echogenic lesion of the right hepatic lobe, possibly reflecting a hemangioma. 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 Peripheral smear showing intra-cytoplasmic inclusion bodies which suggests an smooth Doxycycline started Patient remained afebrile WBC increased from 3.6-9.9 Platelet count increased from 24 -80 k AST ALT slightly elevated AST 163 to 170 ALT 121-146 Alk phos 250 up to 267 Liver US: 1. No cholelithiasis or sonographic evidence of acute cholecystitis. 2. No biliary ductal dilation. 3. 8 mm indeterminate echogenic lesion of the right hepatic lobe, possibly reflecting a hemangioma. Anaplasmosis serology: pending Ehrlichiosis: pending Infectious disease consulted-Dr. Dunlap, clinical picture with stenosis at this time Recommend to continue doxycycline for 10 days total Discharge plan: Doxycycline 100 mg p.o. twice daily x7 days Repeat CBC and follow-up with PCP in 3 to 5 days (2) Thrombocytopenia: Platelet count significantly reduced at 28, was 224 last month Platelet trending up -No evidence of active bleeding -Levels improved from 20,000 now 80,000 Hold aspirin for now CBC as an outpatient during follow-up with PCP (3) CKD (chronic kidney disease), stage III: Kidney function back to baseline after fluids (4) Hypokalemia: Resolved (5) HTN (hypertension): Normotensive Continue usual blood pressure medicines (6) HLD (hyperlipidemia): Continue statin (7) Vertigo: In setting of infection, dehydration Resolved -Meclizine PRN (8) Asthma: Controlled, no home inhalers Abnormal Liver US 8 mm indeterminate echogenic lesion of the right hepatic lobe, possibly reflecting a hemangioma. Further work-up as an outpatient Dispo: Discharge to home today Follow-up with primary care physician in 3 to 5 days Total Time Total Time Spent Total Time Spent (In Minutes): 40 minutes Discharge Plan Discharge Items Patient Disposition: Home - Self-Care Reason For Visit: ANAPLASMOSIS Discharge Diagnosis: ANAPLASMOSIS Discharge Goals: Diagnostic testing and Therapeutic intervention Activity: As commented below Activity Comment: Resume activity gradually as tolerated Lifting: Wait until after follow-up appointment Exercise/Sports: Wait until after follow-up appointment Driving/Machine Use Comment: No driving until reevaluated with primary care physician Non-emergency contact: Primary Care Provider Call non-emergency contact if: you have any medication questions, your symptoms worsen and you have a fever Follow-up/Referrals: George Grigsby MD [Primary Care Provider] - Diet: Heart Healthy Addtl Provider Instructions: Follow-up with primary care physician in 3 to 5 days. The clinic will be calling you for the appointment. Call primary care physician or return to the ER immediately if worsening symptoms, fevers or chills, weakness, dizziness, bleeding. Return to ER immediately if with any head trauma. Prescriptions: New doxycycline hyclate 100 mg Capsule 100 mg PO BID 7 Days Qty: 14 RF: 0 Continued multivitamin Tablet 1 tab PO DAILY RF: 0 atorvastatin 20 mg tablet 20 mg PO DAILY RF: 0 triamterene-hydrochlorothiazid 37.5-25 mg tablet 1 tab PO DAILY RF: 0 Discontinued aspirin 81 mg Tablet,Delayed Release (Dr/Ec) 81 mg PO QAM RF: 0 Stand-Alone Forms: [facility] Discharge Orders: Discharge Order (Routine); Ordered 08/18/18 Ordered By: Andrei Light Admission Data Admit Date/Time: 08/17/18 16:31 Attending Provider: Andrei Light Admit Provider: Homero Anderson Primary Care Provider: George Grigsby Other Providers: Homero Anderson ; Sebastian Dunlap Service: Telemetry Medical Other Interventions: Discharge Summary Assessment (RN) Last Done: 08/18/18 14:50
[2018-08-18] MEDS ORDERED: DOXYCYCLINE HYCLATE 100 MG CAP PO SCH (15:30)
[2018-08-19 16:25] LABS: Anaplasma phagocytophila IgM <1:20 (<1:20); Ehrlichia chaff IgG Ab <1:64 (<1:64); Ehrlichia chaff IgM Ab <1:20 (<1:20)
--- OUTSIDE RECORDS SUMMARY | 2018-08-19 21:21 | External Medical Summary | Continuity of Care Document ---
:1940 Author Name Jennifer Apodaca Address Unavailable Unavailable , Care Team Providers Name Role Phone Chace Apodaca Unavailable [email or web address] PCP, NO Unavailable Unavailable Problems Active medical history not documented Allergies and Adverse Reactions Allergy history not documented Medications Medications not documented Procedures Procedures not documented Immunizations Immunizations not documented Plan of Treatment Planned Observations Planned Goals not documented Results CBC No Diff (Pending) Laboratory: [facility] [address] [facility] [id number] tel: 17-Aug-2018 6:40 WBC 7.89 K/uL Range: 4.8-10.8 K/u L RBC 3.79 {M/uL} (below low Range: 4.7-6 .1 M/uL threshold) HEMOGLOBIN 13.2 g/dL (below low Range: 14.0-18.0 g/dL threshold) HEMATOCRIT 37.3 % (below low Range: 42- 52 % threshold) MCV 98.4 fL Range: 80-100 fL MCH 34.8 pg (above high threshold) Range : 25-34 pg MEAN CORPUSCULAR HGB CONC 35.4 Range: 3 2-36 g/dL g/dL RED CELL DISTRIBUTION WIDTH SD Range: 3 6.4-46.3 fL 50.1 fL (above high threshold) RED CELL DISTRIBUTION WIDTH CV Range: 1 1.5-14.5 % 13.9 % PLATELET COUNT 42 K/uL (below low Range: 130-400 K/uL threshold) MEAN PLATELET VOLUME 12.9 fL Range: 7.4 -10.4 fL (above high threshold) Basic Metabolic Panel Laboratory: [facility] [address] (Pending) Michel FarmerSophie & JulietClaudia [facility] [id number] tel: 17-Aug-2018 6:40 SODIUM 137 mmol/L Range: 136-145 mmol /L POTASSIUM 4.0 mmol/L Range: 3.5-5.1 mmo l/L CHLORIDE 107 mmol/L Range: 98-107 mmol/ L CARBON DIOXIDE 27 mmol/L Range: 21-32 m mol/L ANION GAP 3.0 Range: 3-11 BLOOD UREA NITROGEN 27 mg/dl Range: 7-1 8 mg/dl (above high threshold) CREATININE 1.33 mg/dl Range: 0.6-1.4 mg /dl Estimated Creatinine Clearance Range: m l/min 46.5 ml/min Comments: Est. Creat inine Clearance (Mod Cockcroft-Gault) for pharmacydosing purposes. Estimated GFR () Comment s: Units: ml/min per 58.5 1.73 meters squaredT he estimated GFR (CKD-E PI equation) has not be en validatedfor inpatie nt settings and may not be an accurate reflectiono f renal function in critical ly ill patients or those withrapidly changing renal function (e.g. GILLINA). Estimated GFR (Non- Comments: Uni ts: ml/min per Thai) 50.5 1.73 meters squaredT he estimated GFR (CKD-E PI equation) has not be en validatedfor inpatie nt settings and may not be an accurate reflectiono f renal function in critical ly ill patients or those withrapidly changing renal function (e.g. GILLIAN). BUN/CREATININE RATIO 20.6 (above Range: 10-20 high threshold) GLUCOSE 98 mg/dl Range: 70-99 mg/dl CALCIUM 7.8 mg/dl (below low Range: 8.5 -10.1 mg/dl threshold) Chemistry Specimen Laboratory: [facility] [address] Hemolysis (Pending) [address] Clements [facility] [id number] tel: 17-Aug-2018 6:40 Chemistry Specimen Hemolysis Comments: S light hemolysis is detected which ma y affect Potassium,Magnesium, AST and CK. If clinically indicated, theseshou ld be recollected. Liver Panel Laboratory: [facility] [address] Commen ts: Comment pls add to (Albumin,Tot Prot,Alk Michel Clements [facility] am labs Phos,Bili [id number] tel: Dir,ALT/SGPT,AST/SGOT,B juvencio-Tot) (Pending) 17-Aug-2018 11:51 Bilirubin, Total 0.8 mg/dl Range: 0.2-1 mg/dl Bilirubin, Direct 0.3 mg/dl (above Range : 0-0.2 mg/dl high threshold) AST/SGOT 163 U/L (above high Range: 15- 37 U/L threshold) ALT/SGPT 121 U/L (above high Range: 12- 78 U/L threshold) TOTAL PROTEIN 6.9 {gm/dl} Range: 6.4-8. 2 gm/dl ALBUMIN 2.7 {gm/dl} (below low Range: 3 .4-5.0 gm/dl threshold) ALKALINE PHOSPHATASE 250 U/L Range: 45- 117 U/L (above high threshold)
== END 2018-08-18 16:02 | disposition home or self-care (01) | DRG 869 ==
LOC: ED 11:20 → 2W 11:20